=== PATIENT | female | born 1990 | race Caucasian/White ===

== ENCOUNTER 2021-06-23 08:02 | Inpatient (IN) | payer OTHER ==
[2021-06-18 10:49] VITALS: BMI 51.1
[~2021-06-23 08:02] MED LIST: BUPIVACAINE HCL/PF 0.25% (2.5MG/ML) 10 ML VIAL IJ ONE
[2021-06-23] MEDS ORDERED: MIDAZOLAM HCL 2 MG/2 ML SINGLE DOSE VIAL ONE ×2 (08:25→11:31)
[2021-06-23] MEDS ORDERED: BUPIVACAINE HCL/PF 0.25% (2.5MG/ML) 10 ML VIAL ONE (09:33)
[2021-06-23] MEDS ORDERED: BUPIVACAINE HCL/PF 0.5% (5MG/ML) 10 ML VIAL ONE ×2 (11:31→11:33)
[2021-06-23] MEDS ORDERED: BUPIVACAINE LIPOSOME/PF (EXPAREL) 266 MG/20 ML VIAL ONE (11:31)
[2021-06-23] MEDS ORDERED: fentaNYL CITRATE 250 MCG/5 ML VIAL ONE (11:50)
[2021-06-23] MEDS ORDERED: ROCURONIUM BROMIDE 50 MG/5 ML SYRINGE ONE ×2 (11:50→12:37)
[2021-06-23] MEDS ORDERED: SUCCINYLCHOLINE CHLORIDE 200 MG/10 ML SYRINGE ONE (11:50)
[2021-06-23] MEDS ORDERED: PROPOFOL 20 ML ONE ×2 (11:50)
[2021-06-23] MEDS ORDERED: SEVOFLURANE 250 ML BTL ONE (12:46)
[2021-06-23] MEDS ORDERED: BUPIVACAINE HCL/PF 0.25% (2.5MG/ML) 10 ML VIAL IJ ONE (13:50)
[2021-06-23] MEDS ORDERED: NEOSTIGMINE METHYLSULFATE 0.5 MG/1 ML - 10 ML MDV ONE (13:53)
[2021-06-23] MEDS ORDERED: GLYCOPYRROLATE 0.2 MG/1 ML VIAL ONE ×2 (13:54)
[2021-06-23] MEDS ORDERED: SODIUM CHLORIDE 1,000 ML IV SCH (14:00)
[2021-06-23] MEDS ORDERED: HYDROmorphone HCL/PF 1 MG/ML VIAL IVPB PRN ×2 (14:00)
[2021-06-23] MEDS: ONDANSETRON 4 MG/2 ML VIAL IVPUSH PRN ×2 (14:10→20:41)
[2021-06-23] MEDS: METOCLOPRAMIDE HCL INJECTION 10 MG/2 ML VIAL IVPUSH SCH ×2 (14:13→20:43)
[2021-06-23] MEDS ORDERED: ONDANSETRON 4 MG/2 ML VIAL ONE (14:13)
[2021-06-23] MEDS ORDERED: FAMOTIDINE 20 MG PREMIXED IVPB IVPB ONE (14:18)
[2021-06-23] MEDS ORDERED: ONDANSETRON 4 MG/2 ML VIAL IVPUSH PRN (14:22)
[2021-06-23] MEDS: ACETAMINOPHEN 1000 MG/100 ML BAG IVPB ONE ×2 (14:35→17:43)
[2021-06-23 15:04] LABS: ALBUMIN 3.5 g/dl (3.4-5.0); BILIRUBIN,TOTAL 0.5 mg/dl (0.2-1); CALCIUM 8.7 mg/dl (8.5-10); CREATININE 0.9 mg/dl (0.55-1.3); TOT PROT 6.7 g/dl (6.4-8.2)
[2021-06-23 15:15] LABS: HEMATOCRIT 40.9 % (32.4-45.2); HEMOGLOBIN 14.2 G/dL (10.7-15.3); MCH 28.6 pg (25.7-33.7); MCHC 34.7 g/dl (32.0-36.0); MEAN CELL VOLUME 82.4 fl (80-96); MEAN PLT VOLUME 7.8 fl (7.5-11.1); RBC 4.96 10^6/uL (3.60-5.2); RDW 15.5 % (11.6-15.6); WHITE BLOOD COUNT 13.4 10^3/uL (4.0-10.8)
[2021-06-23] MEDS: FAMOTIDINE 20 MG/50 ML IVPB 20 MG/50 ML MG IVPB SCH (21:10)
[2021-06-23 21:27] LABS: ALBUMIN 3.6 g/dl (3.4-5.0); BILIRUBIN,TOTAL 0.5 mg/dl (0.2-1); CALCIUM 8.7 mg/dl (8.5-10); CREATININE 0.8 mg/dl (0.55-1.3); TOT PROT 7.1 g/dl (6.4-8.2)
[2021-06-23 22:32] LABS: HEMATOCRIT 44.3 % (32.4-45.2); HEMOGLOBIN 15.2 G/dL (10.7-15.3); MCH 28.2 pg (25.7-33.7); MCHC 34.4 g/dl (32.0-36.0); MEAN CELL VOLUME 82.2 fl (80-96); MEAN PLT VOLUME 7.8 fl (7.5-11.1); PLATELET COUNT 285.9 10^3/uL (134-434); RBC 5.39 10^6/uL (3.60-5.2); WHITE BLOOD COUNT 13.9 10^3/uL (4.0-10.8)
[2021-06-24] MEDS: METOCLOPRAMIDE HCL INJECTION 10 MG/2 ML VIAL IVPUSH SCH ×3 (01:44→14:24)
[2021-06-24] MEDS: ONDANSETRON 4 MG/2 ML VIAL IVPUSH PRN (02:42)
[2021-06-24] MEDS: FAMOTIDINE 20 MG/50 ML IVPB 20 MG/50 ML MG IVPB SCH (09:27)
[2021-06-24 09:33] LABS: ALBUMIN 3.1 g/dl (3.4-5.0); BILIRUBIN,TOTAL 0.5 mg/dl (0.2-1); CALCIUM 8.6 mg/dl (8.5-10); CREATININE 0.8 mg/dl (0.55-1.3)
[2021-06-24] MEDS ORDERED: amLODIPine BESYLATE 2.5 MG TABLET (FP) PO SCH (10:00)
[2021-06-24 10:29] LABS: HEMATOCRIT 39.3 % (32.4-45.2); HEMOGLOBIN 13.5 G/dL (10.7-15.3); MCH 28.1 pg (25.7-33.7); MCHC 34.2 g/dl (32.0-36.0); MEAN PLT VOLUME 7.7 fl (7.5-11.1); RBC 4.79 10^6/uL (3.60-5.2); RDW 14.9 % (11.6-15.6); WHITE BLOOD COUNT 14.2 10^3/uL (4.0-10.8)
[2021-06-24] MEDS ORDERED: SODIUM CHLORIDE 1,000 ML IV SCH (13:15)
[2021-06-24] MEDS ORDERED: oxyCODONE HCL 5 MG TABLET PO PRN (13:15)
[2021-06-24] MEDS ORDERED: ACETAMINOPHEN 325 MG TABLET (FP) PO PRN (13:15)
[2021-06-24 14:30] VITALS: BP 147/97; PULSE 56; TEMP 98.6
== END 2021-06-24 15:21 | disposition home or self-care (01) | DRG 621 ==
LOC: FM/S 08:02
PROVIDERS: ADMIT Surgery; ATTEND Surgery
PROC: 0DJ04ZZ Inspection of Upper Intestinal Tract, Percutaneous Endoscopic Approach (ICD-10-PCS; 2021-06-23)
PROC: 0DB64Z3 Excision of Stomach, Percutaneous Endoscopic Approach, Vertical (ICD-10-PCS; principal; 2021-06-23 12:29)
DX: E66.01 Morbid (severe) obesity due to excess calories (principal); Z68.43 Body mass index [BMI] 50.0-59.9, adult; I10 Essential (primary) hypertension
CPT/HCPCS: 36415; 74240-TC-FY; 80053; 84703; 85027; 86850; 86900; 86901; 88305-TC; 94760